=== PATIENT | female | born 1985 | race Caucasian/White ===

== ENCOUNTER 2020-04-15 01:45 | Inpatient (IN) | payer OTHER ==
[2020-04-15] MEDS ORDERED: DEXTROSE 5%-LACTATED RINGERS 1,000 ML IV SCH (02:05)
[2020-04-15 03:03] LABS: BASO % 0.4 % (0-2.0); HEMATOCRIT 37.6 % (32.4-45.2); HEMOGLOBIN 12.5 GM/dL (10.7-15.3); MCH 32.3 pg (25.7-33.7); MCHC 33.2 g/dl (32.0-36.0); MEAN CELL VOLUME 97.4 fl (80-96); MEAN PLT VOLUME 10.8 fl (7.5-11.1); MONO % 5.6 % (3.8-10.2); PLATELET COUNT 229 K/MM3 (134-434); RBC 3.86 M/mm3 (3.60-5.2); RDW 14.2 % (11.6-15.6); WHITE BLOOD COUNT 10.1 K/mm3 (4.0-10.0)
[2020-04-15 03:13] LABS: CORRECTED WBC 0.01 K/mm3; INR 0.86 (0.83-1.09); PROTHROMBIN TIME (PATIENT) 10.1 SEC (9.7-13.0)
[2020-04-15 03:15] LABS: ACTIVATED PTT 25.5 SECONDS (25.2-36.5)
[2020-04-15 03:34] VITALS: BMI 27.6
[2020-04-15 03:48] LABS: BLOOD UREA NITROGEN 15.9 mg/dL (7-18); CREATININE 0.7 mg/dL (0.55-1.3); POTASSIUM 3.5 mmol/L (3.5-5.1)
[2020-04-15] MEDS ORDERED: ELECTROLYTE-148 SOLN 1,000 ML IV SCH (13:45)
--- NOTE | 2020-04-15 13:51 | HP ---
Past Medical History - Primary Care Physician PCP:: Shane Herr - Admission Chief Complaint: 34yo p1 with at EGA 40w6d admitted with PROM since 11pm on 04/14/2020. History of Present Illness: Post term at 40w6d with PROM since 22:00 on 04/14/20 and not in labor. Previous C/S in 05/2018 for breech. Patient desires . 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: Alzheimer's, CVA, Dementia, Migraine, Multiple Sclerosis, Peripheral Neuropathy, Parkinson's, Seizure, Syncope, TIA, Vertigo, Other Cardiovascular: No: AFIB, Aneurysm, Aortic Insufficiency, Aortic Stenosis, CAD, CHF, Deep Vein Thrombosis, HTN, Hyperlipdemia, RI, Mitral Insufficiency, Mitral Stenosis, Murmur, Pulmonary Hypertension, Other Pulmonary: No: Asthma, Bronchitis, Cancer, COPD, O2 Dependent, Pneumonia, Previously Intubated, Pulmonary Embolus, Pulmonary Fibrosis, Sleep Apnea, Other Gastrointestinal: No: Ascites, Cancer, Constipation, Crohn's Disease, Diverticulitis, Diverticulosis, Esophageal Varices, Gastritis, GERD, GI Bleed, Hemorrhoids, Hiatal Hernia, Inflamatory Bowel Disease, Irritable Bowel Disease, Pancreatitis, Peptic Ulcer Disease, Ulcerative Colitis, Other Hepatobiliary: No: Cirrhosis, Cholelithiasis, Cholecystitis, Choledocholithiasis, Hepatitis A, Hepatitis B, Hepatitis C, Other Renal/: No: Renal Failure, Renal Inusuff, BPH, Cancer, Hematuria, He modialysis, Neurogenic Bladder, Renal Calculi, UTI, Other Reproductive: No: Ectopic , Endometriosis, Fibroids, PID, Polycystic Ovary Syndrome, Postmenopausal, Other ...: 2 ...Para: 1 (C/S x 1 for breech) ...Term: 1 ...: 0 ...Spon : 0 ...Induced : 0 ...Living Children: 1 ...Multiple Gestation: 0 ... Weeks Gestation by Dates: 41.1 ...EDC by Dates: 04/07/20 ...EDC by Sono: 04/09/20 Heme/Onc: No: Anemia, B12 Deficiency, Bleeding Disorder, Cancer, Current Chemotherapy, Current Radiation Therapy, Hemochromatosis, Hypercoaguable State, Myeloproliferative Synd, Sickle Cell Disease, Sickle Cell Trait, Thrombocytopenia, Other Infectious Disease: No: AIDS, C-Diff, Herpes Zoster, HIV, MRSA, STD's, Tuberculosis, VREF, Other Psych: No: Addictions, Anxiety, Bipolar, Depression, Panic, Psychosis, Schizophrenia, Other Musculoskeletal: No: Bursitis, Chronic low back pain, Hemiparesis, Hemiplegia, Osteoarthritis, Paraplegia, Other Rheumatology: No: Fibromyalgia, Gout, Lupus, Rheumatoid Arthritis, Sarcoidosis, Vasculitis, Other ENT: No: Allergic Rhinitis, Sinusitis, Other Endocrine: No: Earnest's Disease, [place]'s Disease, Diabetes Insipidus, Diabetes Mellitus, Hyperparathyroidism, Hyperthyroidism, Hypothyroidism, Osteopenia, SIADH, Other Dermatology: No: Basal Cell, Cellulitis, Eczema, Melanoma, Psoriasis, Squamous Cell, Other - Past Surgical History Past Surgical History: Yes: Hx Myomectomy: No Hx Transabdominal Cerclage: No - Smoking History Smoking history: Never smoked Have you smoked in the past 12 months: No - Alcohol/Substance Use Hx Alcohol Use: No History of Substance Use: reports: None - Social History Usual Living Arrangement: Yes: With Spouse, With Child Do you think of yourself as: Straight/Heterosexual ADL: Independent History of Recent Travel: No Home Medications - Allergies Allergies/Adverse Reactions: Allergies Allergy/AdvReac Type Severity Reaction Status Date / Time shellfish derived Allergy Unknown Verified 05/29/18 06:25 No Known Drug Allergies Allergy Verified 05/29/18 09:30 - Home Medications Home Medications: Ambulatory Orders Pnv No.95/Ferrous Fum/Folic AC [ Vitamin Tablet] 1 each PO DAILY 05/29/18 Family Medical History Family History: Unremarkable Review of Systems - Review of Systems Constitutional: reports: No Symptoms, Other (occasional mild ctx's) Eyes: reports: No Symptoms HENT: reports: No Symptoms Neck: reports: No Symptoms Cardiovascular: reports: No Symptoms Respiratory: reports: No Symptoms Gastrointestinal: reports: No Symptoms Genitourinary: reports: No Symptoms Breasts: reports: No Symptoms Reported Musculoskeletal: reports: No Symptoms Integumentary: reports: No Symptoms Neurological: reports: No Symptoms Endocrine: reports: No Symptoms Hematology/Lymphatic: reports: No Symptoms Psychiatric: reports: No Symptoms Pain Intensity: 1 Physical Exam - Maternity Vital Signs: Vital Signs Temperature 98.2 F 07/05/20 12:00 Pulse Rate 69 04/15/20 13:00 Respiratory Rate 20 04/15/20 13:00 Blood Pressure 129/78 04/15/20 13:00 O2 Sat by Pulse Oximetry (%) Constitutional: Yes: Well Nourished, No Distress, Calm Eyes: Yes: WNL, Conjunctiva Clear, EOM Intact HENT: Yes: WNL, Atraumatic, Normocephalic Neck: Yes: WNL, Supple, Trachea Midline Cardiovascular: Yes: WNL, Regular Rate and Rhythm Breast(s): Yes: WNL - Abdominal Exam/OB Fundal Height: 41 Number of Fetuses: Single Presentation: Vertex Contractions: Yes Regularity: Irritability Intensity: Mild Monitor Mode: External Heart Rate (range): 140 Heart Rate Location: Midline Category: I Accelerations: Uniform Decelerations: Variable (occasional mils and rare variable decels) - Vaginal Exam/OB Vaginal Bleeding: No Speculum Exam: Yes Amniotic Membrane Status: Leaking Nitrazine Test: Positive Amniotic Fluid: Yes: Clear Meconium: Light Presentation: Vertex/Position Station: -4 - Physical Exam Musculoskeletal: Yes: WNL, Muscle Weakness Edema: No Integumentary: Yes: WNL Deep Tendon Reflex Grade: Normal +2 ...Motor Strength: WNL Psychiatric: Yes: WNL, Alert, Oriented - Labs Lab Results: CBC, BMP 04/15/20 02:45 04/15/20 02:45 Hemorrhage Risk Assessment - Risk Factors Medium Risk Factors: Yes: Prior , uterine surgery,or multiple laparotomies High Risk Factors: Yes: None Risk Score: 1 Risk Level: Medium Risk Imaging - Results Ultrasound: Report Reviewed Assessment/Plan 34yo p1 with at EGA 40w6d admitted with PROM since 11pm on 04/14/2020. The pt desires TOLAC. 1. Admit to L&D 2. Pt is s/p primary LT C/S in the past w/o other uterine surgery or contraindications to TOLAC/ 3. Consents reviewed and signed. Reviewed risks of Trial of Labor after section, including but not limited to: - Risks of failed trial of labor resulting in a repeat delivery in a pproximately 20-40% of patients who are attempting - Risks of uterine rupture and/or uterine scar dehiscence resulting in emergency delivery (0.2 - 1.5% risk) - Risks of hemorrhage, DIC, hysterectomy, blood transfusion, injury to surrounding organs, need for additional future surgery, etc. - Potential increase in risks of complications if failed - Risks of severe neurologic compromise/injury, or - Rare risks of maternal 4. GBS Negative 5. FHT is Category I and fetus requires no intervention 6. Anesthesia and Kian notified of patients TOLAC. 7. Plan to proceed with expectant managent. I discussed the risks and benefits of repeat C/S now, possible emergency C/S, expectant management in labor, augmentation/induction of labor with pitocin, etc. The pt prefers expectant mgt of labor. She declined repeat C/S and pitocin. We discussed the risks of chorio.
--- NOTE | 2020-04-15 15:25 | PN ---
Ante-Partal Exam - Subjective Subjective: No complaints. Declined pitocin labor indx again. Vital Signs: Vital Signs Temperature 98.7 F 04/15/20 14:49 Pulse Rate 70 04/15/20 14:49 Respiratory Rate 20 04/15/20 14:49 Blood Pressure 127/74 04/15/20 14:49 O2 Sat by Pulse Oximetry (%) Bleeding: No Headache: No Visual changes: No Right upper quadrant pain: No Pain (scale 1-10): 1 - Contractions Contractions: Yes Regularity: Irregular Intensity: Mild Monitor Mode: External - Exam during Labor Heart Rate: 140 Variability: Moderate Heart Rate Location: Midline Category: I Monitor Accelerations: Present Monitor Decelerations: None Exam: Vaginal Dilatation (cm): 1 Effacement (%): 50 Amniotic Membrane Status: Leaking Amniotic Fluid: Clear Presentation: Vertex Station: -3 Remarks: Adequate Gynecoid pelvimetry - Intrapartum Hemorrhage Risk Medium Risk Factors: None High Risk Factors: None Risk Score: 0 Risk Level: Low Risk - Assessment/Plan Assessment/Plan: 34yo P1 with PROM, not in labor. Fetus with Category I tracing and does not need intervention. Pt declined pitocin again. She prefers to monitor labor and await spontaneous labor.
[2020-04-15] MEDS ORDERED: LACTATED RINGERS SOLUTION 1,000 ML/1,000 ML INFUS.BAG IV SCH (15:30)
[2020-04-15] MEDS ORDERED: AMPICILLIN - 2 GM in SODIUM CHLORIDE 100 ML IVPB ONE (16:00)
[2020-04-15] MEDS ORDERED: AMPICILLIN SODIUM 2 GM VIAL ONE (17:23)
[2020-04-15] MEDS ORDERED: AMPICILLIN - 1 GM in SODIUM CHLORIDE 100 ML IVPB SCH (20:00)
[2020-04-15] MEDS ORDERED: AMPICILLIN SODIUM 1 GM VIAL ONE ×2 (20:51→23:38)
--- NOTE | 2020-04-15 23:25 | PN ---
Ante-Partal Exam - Subjective Subjective: Pt is w/o complaints, comfortable, no regular contractions, no fever or chills. The pt and her refused labor indx w/pitocin, refused delivery by C/S. The pt wants to discharge herself from the hospital AMA and go home. Vital Signs: Vital Signs Temperature 98.6 F 04/15/20 22:00 Pulse Rate 65 04/15/20 22:00 Respiratory Rate 18 04/15/20 22:00 Blood Pressure 126/78 04/15/20 22:00 O2 Sat by Pulse Oximetry (%) Bleeding: No Headache: No Visual changes: No Right upper quadrant pain: No Pain (scale 1-10): 0 - Contractions Contractions: Yes (1 mild ctx per hour) Regularity: Irritability Monitor Mode: External - Exam during Labor Heart Rate: 140 Variability: Moderate Heart Rate Location: Midline Category: I Monitor Accelerations: Present Monitor Decelerations: None Amniotic Fluid: Clear - Intrapartum Hemorrhage Risk Medium Risk Factors: None High Risk Factors: None Risk Score: 0 Risk Level: Low Risk - Assessment/Plan Assessment/Plan: 34yo P1 with at 40w6d admitted with PROM > 24hrs ago. The pt and her refused labor indx w/pitocin, refused delivery by C/S. The pt wants to discharge herself from the hospital AMA and go home. 1. Pt is not in labor 2. Fetus with Category I tracing 3. No evidence of chorio at this time 4. The pt is stable. We had a very long and detailed discussion about the risks of going home AMA. I explained the risks of infection, bleeding, morbidity and mortality, mat ernal morbidity and mortality, uterine rupture, DIC, hysterectomy, etc. I explained the risks of late post term . The pt was advised that she is welcome to call me and/or return to the hospital at any time. I also advised to take abx to decrease the risk of infection.
[2020-04-15] MEDS ORDERED: SODIUM CHLORIDE 100 ML IVPB ONE (23:38)
[2020-04-16 00:08] VITALS: BP 112/64; PULSE 72; TEMP 98.4
[2020-04-17 08:30] LABS: POC NITRAZINE POS
== END 2020-04-16 00:30 | disposition left against medical advice (07) | DRG 833 ==
LOC: JDEL 01:45 → JLDR 02:05
PROVIDERS: ADMIT Obstetrics & Gynecology; ATTEND Obstetrics & Gynecology
DX: O42.92 Full-term premature rupture of membranes, unspecified as to length of time between rupture and onset of labor (principal); O48.0 Post-term pregnancy; Z3A.40 40 weeks gestation of pregnancy
CPT/HCPCS: 36415; 80048; 83986-QW; 85025; 85610; 85730; 86780; 86850; 86900; 86901; 87389; U0003

== ENCOUNTER 2020-04-17 00:05 | Inpatient (IN) | payer OTHER ==
[2020-04-17 04:10] VITALS: BMI 27.6
[2020-04-17] MEDS ORDERED: SODIUM CHLORIDE 100 ML IVPB ONE (05:49)
[2020-04-17] MEDS ORDERED: AMPICILLIN SODIUM 2 GM VIAL ONE (05:49)
[2020-04-17] MEDS ORDERED: AMPICILLIN - 2 GM in SODIUM CHLORIDE 100 ML IVPB ONE (06:00)
--- NOTE | 2020-04-17 06:11 | HP ---
Past Medical History - Primary Care Physician PCP:: Cecilia Gomez - Admission Chief Complaint: 34yo P1 @ 40wks with prolonged ROM, occasional contractions History of Present Illness: Post term at 40w6d with PROM since 22:00 on 04/14/20 and not in labor. Previous C/S in 05/2018 for breech. Patient desires History Source: Patient Limitations to Obtaining History: No Limitations - Past Medical History ...: 2 ...Para: 1 ...Term: 1 ...: 0 ...Spon : 0 ...Induced : 0 ...Living Children: 1 ...Multiple Gestation: 0 ...LMP: 07/02/19 ... Weeks Gestation by Dates: 41.2 ...EDC by Dates: 04/07/20 ...EDC by Sono: 04/09/20 - Past Surgical History Past Surgical History: Yes: Hx Myomectomy: No Hx Transabdominal Cerclage: No - Smoking History Smoking history: Never smoked Have you smoked in the past 12 months: No - Alcohol/Substance Use Hx Alcohol Use: No History of Substance Use: reports: None - Social History ADL: Independent History of Recent Travel: No Home Medications - Allergies Allergies/Adverse Reactions: Allergies Allergy/AdvReac Type Severity Reaction Status Date / Time shellfish derived Allergy Unknown Verified 05/29/18 06:25 No Known Drug Allergies Allergy Verified 05/29/18 09:30 - Home Medications Home Medications: Ambulatory Orders Pnv No.95/Ferrous Fum/Folic AC [ Vitamin Tablet] 1 each PO DAILY 05/29/18 Amoxicillin/Potassium Clav [Augmentin 500-125 Tablet] 1 each PO BID #20 tablet MDD 2 04/15/20 Review of Systems - Review of Systems Constitutional: reports: No Symptoms Eyes: reports: No Symptoms HENT: reports: No Symptoms Neck: reports: No Symptoms Cardiovascular: reports: No Symptoms Respiratory: reports: No Symptoms Gastrointestinal: reports: No Symptoms Genitourinary: reports: Other (Reports contructoins, continued LOF) Breasts: reports: No Symptoms Reported Musculoskeletal: reports: No Symptoms Integumentary: reports: No Symptoms Neurological: reports: No Symptoms Endocrine: reports: No Symptoms Hematology/Lymphatic: reports: No Symptoms Psychiatric: reports: No Symptoms Physical Exam - Maternity Vital Signs: Vital Signs Temperature 98.4 F 04/17/20 05:09 Pulse Rate 91 H 04/17/20 05:09 Respiratory Rate 18 04/17/20 05:09 Blood Pressure 126/75 04/17/20 05:09 O2 Sat by Pulse Oximetry (%) Constitutional: Yes: Well Nourished Eyes: Yes: WNL, Conjunctiva Clear HENT: Yes: WNL, Atraumatic, Normocephalic Neck: Yes: WNL, Supple, Trachea Midline Cardiovascular: Yes: WNL, Regular Rate and Rhythm Lungs: Clear to auscultation Breast(s): Yes: WNL - Abdominal Exam/OB Fundal Height: 38 Number of Fetuses: Single Presentation: Vertex Contractions: Yes Regularity: Irregular Intensity: Mild Monitor Mode: External Heart Rate (range): 140 Heart Rate Location: Midline Category: I Accelerations: Uniform Decelerations: None - Vaginal Exam/OB Vaginal Bleeding: No Speculum Exam: No Dilatation (cm): 2-3 Effacement (%): 80% Amniotic Membrane Status: Ruptured Nitrazine Test: Positive Amniotic Fluid: Yes: Clear Presentation: Vertex/Position Station: -3 - Physical Exam Musculoskeletal: Yes: WNL Extremities: Yes: WNL Edema: Yes Integumentary: Yes: WNL ...Motor Strength: WNL Psychiatric: Yes: WNL, Alert, Oriented Assessment/Plan 34yo P1 @ 41.1wks with prior c/section Prolonged PROM, early labor Admit to L&D IV Ampicillin Currently declines augmentation with Pitocin declines any pain medication Possibility of c/section discussed r/b/a of all delivery methods extensively discussed with patient Patient will dis cuss her options with
[2020-04-17] MEDS ORDERED: ELECTROLYTE-148 SOLN 1,000 ML IV SCH (06:15)
[2020-04-17] MEDS ORDERED: OXYTOCIN 30 UNITS in 0.9% NS 30 UNIT/500 ML INFUS.BAG IVPB SCH (08:15)
[2020-04-17] MEDS ORDERED: morphine SULFATE/PF 0.5 MG/ML (2cc Syringe - QUVA) ONE (08:44)
[2020-04-17] MEDS ORDERED: ceFAZolin SODIUM 1 GM VIAL ONE (08:44)
[2020-04-17] MEDS ORDERED: ePHEDrine SULFATE 50 MG/1 ML AMPULE ONE (08:44)
[2020-04-17] MEDS ORDERED: AMPICILLIN SODIUM 1 GM VIAL ONE (10:12)
[2020-04-17] MEDS: AMPICILLIN - 1 GM in SODIUM CHLORIDE 100 ML IVPB SCH ×2 (10:15→15:43)
[2020-04-17] MEDS ORDERED: OXYTOCIN 20 UNITS in 0.9% NS 20 UNIT/1,000 ML INFUS.BAG IV ONE ×2 (12:41→15:22)
[2020-04-17] MEDS ORDERED: ONDANSETRON 4 MG/2 ML VIAL IVPUSH PRN (12:44)
[2020-04-17] MEDS ORDERED: OXYTOCIN 10 UNITS/ML VIAL ONE (13:00)
[2020-04-17] MEDS ORDERED: SODIUM CHLORIDE 0.9% P/F 10 ML VIAL IJ ONE (13:00)
[2020-04-17] MEDS ORDERED: KETOROLAC TROMETHAMINE 30 MG/1 ML VIAL ONE (14:01)
[2020-04-17 15:04] LABS: CORD BASE EXCESS -2.6 mmol/L (0-2); CORD HCO3 24.9 mmHg (20-29); CORD PCO2 52.9 mmHg (30-78); CORD pH 7.29 (7.14-7.44)
[2020-04-17 15:06] LABS: CORD HCO3 23.7 mmHg (20-29); CORD PCO2 57.8 mmHg (30-78); CORD pH 7.231 (7.14-7.44)
[2020-04-17] MEDS ORDERED: diphenhydrAMINE HCL 25 MG CAPSULE (FP) PO PRN (16:00)
[2020-04-17] MEDS ORDERED: BENZOCAINE 20% 57 GM BOTTLE TP PRN (16:00)
[2020-04-17] MEDS ORDERED: oxyCODONE HCL 5 MG TABLET PO PRN ×2 (16:00)
[2020-04-17] MEDS ORDERED: OXYTOCIN 20 UNITS in 0.9% NS 20 UNIT/1,000 ML INFUS.BAG IV SCH (16:00)
[2020-04-17] MEDS ORDERED: BENZOCAINE 28 GM HEMORRHOIDAL OINTMENT PR PRN (16:00)
[2020-04-17] MEDS ORDERED: IBUPROFEN 800 MG/8 ML IJ IVPB PRN (16:00)
[2020-04-17] MEDS ORDERED: METHYLERGONOVINE MALEATE 0.2 MG/1 ML AMP IM PRN (16:00)
[2020-04-17] MEDS ORDERED: WITCH HAZEL 50% (TUCKS) 40 PAD/JAR PAD TP PRN (16:00)
[2020-04-17] MEDS ORDERED: IBUPROFEN 600 MG TABLET (FP) PO PRN (16:00)
--- NOTE | 2020-04-17 16:00 | OP ---
Operative Note - Note: Operative Date: 04/17/20 Pre-Operative Diagnosis: 34yo P1 @ 41.1wks with prolonged ROM, no spontaneous labor, prior c/section, Elects c/section Operation: Repeat c/section Findings: Viable female , APGARs 9/9 cloudy amniotic fluid Normal bl tubes and ovaries Post-Operative Diagnosis: Same as Pre-op Surgeon: Cecilia Gomez Body Shop Technician: Rojelio Powell Anesthesiologist/RUBBER TIRE CURER: Valeria Felix Anesthesia: Spinal Estimated Blood Loss (mls): 700 Drains, Volume Out (mls): 200 Fluid Volume Replaced (mls): 1,600 Operative Report Dictated: Yes
[2020-04-17] MEDS ORDERED: CITRIC ACID/SODIUM CITRATE 30 ML UNIT-DOSE CUP PO ONE (16:06)
[2020-04-17] MEDS: CEFAZOLIN 1 GM/D5W 1 GM/50 ML BAG IVPB SCH (17:45)
--- NOTE | 2020-04-17 19:44 | PN ---
Delivery - Delivery Section: Repeat Type of Anesthesia: Spinal Episiotomy/Laceration: None EBL (cc): 700 Delivery, Single - Stages of Labor Date of Delivery: 04/17/20 Time of Delivery: 13:59 Date Placenta Delivered: 04/17/20 Time Placenta Delivered: 14:01 Placenta: Yes: Expressed - Condition of Infant Childcare Worker/Transfer Car Operator Drier Present: Yes Name: Pily Kumar Infant Gender: Female Weight: 7 lb 1 oz Position: Left, OP Total Hours ROM (Hrs/Mins): 64h1m - 1 Minute Total Score: 9 5 Minutes Total Score: 8 - Sullivan Feeding Plan Initial Plan: Exclusive throughout hospitalization Benefits of Exclusively reinforced: Yes Remarks - Remarks Remarks: Transverse arrest
--- NOTE | 2020-04-17 20:48 | OP ---
DATE OF OPERATION: DATE OF DICTATION: 04/17/2020 After assuring informed consent and answering all patient's questions, patient was brought to the operating room where spinal anesthesia was administered. Patient was placed in supine position with left lateral tilt. Abdomen was prepped and draped in sterile fashion. Pfannenstiel skin incision was created with the scalpel, and carried down to the level of the fascia with the scalpel. Fascia was incised with the scalpel, and fascial incision was extended bilaterally with Bovie cautery and subsequently dissected off the rectus abdominis muscle with the Bovie cautery superiorly and inferiorly. The rectus muscle was split in the midline superiorly and inferiorly. Peritoneum identified, tented with Zakia clamps, and incised with Metzenbaum scissors. Peritoneal incision was extended superiorly and inferiorly with good visualization of underlying organs. No significant adhesions were encountered. The bladder was retracted with lower edge of the Nivia. The vesicouterine peritoneum was tented and incised with Metzenbaum scissors and extended bilaterally. Bladder flap was created, and bladder was retracted further with lower edge of the [place]. The lower uterine incision was created with the scalpel and extended bilaterally with bandage scissors. Infant's ear was found to be in the incision. The 's head was found to be in transverse left occiput transverse arrest, was delivered atraumatically, the head as well as both shoulders and the body suctioned upon delivery. The amniotic fluid was found to be cloudy. 's cord was clamped and cut. was handed to waiting laundry assistant. Portion of the cord was sent for blood gases. Placenta was expressed without any difficulty. Uterus was cleared of clots and debris, cultured. Uterus was repaired with 0 Biosyn in running, locking fashion, and subsequently imbricated with 2nd layer of 0 Biosyn. Excellent hemostasis was noted. Abdomen was copiously irrigated. The excellent hemostasis was noted. All laps removed from the abdomen and the peritoneum was repaired with 0 Biosyn. Muscle was reapproximated at the midline. The fascia was repaired with 0 Vicryl in 2 portions. The subcutaneous space was repaired with 2-0 chromic. The skin was closed with 4-0 Biosyn on a Fernie needle. Excellent hemostasis throughout. Instrument and sponge count was correct x2. Uterus was expressed and no active bleeding was noted. Estimated blood loss was 700 mL, urine output 200 mL. Patient received 1600 mL of IV fluid. Patient tolerated procedure well and was brought back to the recovery room in stable condition. Agnieszka [id number]
[2020-04-18] MEDS: CEFAZOLIN 1 GM/D5W 1 GM/50 ML BAG IVPB SCH (01:36)
[2020-04-18] MEDS: DEXTROSE 5%-LACTATED RINGERS 1,000 ML IV SCH ×2 (01:40→20:22)
--- NOTE | 2020-04-18 08:53 | PN ---
Post Progress Note - Subjective Subjective: Patient without acute complaints. Reports tolerating oral intake without nausea or vomiting. Ambulating without dizziness. Denies fevers or chills. Pain well controlled with oral pain medication. Pumping/breast feeding without issue. Passing flatus, no BM. Post Day: 1 Type of Delivery: Repeat C/S Vital Signs: Vital Signs Temperature 98.7 F 04/18/20 06:00 Pulse Rate 71 04/18/20 06:00 Respiratory Rate 20 04/18/20 08:00 Blood Pressure 137/85 04/18/20 06:00 O2 Sat by Pulse Oximetry (%) 100 04/17/20 15:50 Breast Exam: Yes: Soft Uterus: Yes: Fundus Firm, Fundus below umbilicus, Non-tender Incision: Yes: Dressing dry and intact Abdomen/GI: Yes: Abdomen soft, Passing flatus Lochia: Yes: Rubra Lochia, amount: Small Extremities: Yes: Calves non-tender Perineum: Yes: Intact Activity: Ambulating Assessment/Plan 34 y.o. female s/p repeat LT C/S, doing well stable, afebrile. The pt is asymptomatic for s/sxs of anemia. care instructions reviewed. Postoperative care and instructions reviewed. Continue routine postop care. Ambulation encouraged.
--- NOTE | 2020-04-18 08:57 | PN ---
Progress Note (short form) - Note Progress Note: Anesthesia post op note POD#1. S/P under spinal anesthesia with duramorph. VSS. Pain well controlled. Ambulating. No apparent post anesthesia complications.
[2020-04-18 09:34] LABS: BASO % 0.3 % (0-2.0); EOS % 0.9 % (0-4.5); HEMATOCRIT 35.4 % (32.4-45.2); HEMOGLOBIN 11.6 GM/dL (10.7-15.3); LYMPH % 9.1 % (8-40); MCH 32.1 pg (25.7-33.7); MCHC 32.7 g/dl (32.0-36.0); MEAN CELL VOLUME 98.1 fl (80-96); NEUT % 85.7 % (42.8-82.8); PLATELET COUNT 181 K/MM3 (134-434); RBC 3.61 M/mm3 (3.60-5.2); RDW 14.7 % (11.6-15.6); WHITE BLOOD COUNT 10.9 K/mm3 (4.0-10.0)
[2020-04-18 11:24] LABS: ANISOCYTOSIS 0; MACROCYTOSIS 0; PLATELET ESTIMATE NORMAL
[2020-04-18] MEDS: ACETAMINOPHEN 325 MG TABLET (FP) PO PRN (12:05)
[2020-04-18] MEDS: IBUPROFEN 600 MG TABLET (FP) PO PRN (12:05)
[2020-04-18] MEDS: SIMETHICONE 80 MG TAB.CHEW (FP) PO PRN (12:06)
[2020-04-18] MEDS ORDERED: BISACODYL 10 MG SUPP.RECT PR PRN (16:00)
[2020-04-19] MEDS: IBUPROFEN 600 MG TABLET (FP) PO PRN ×2 (03:12→13:13)
[2020-04-19] MEDS: ACETAMINOPHEN 325 MG TABLET (FP) PO PRN ×2 (03:12→13:13)
[2020-04-19] MEDS: SIMETHICONE 80 MG TAB.CHEW (FP) PO PRN (03:13)
--- NOTE | 2020-04-19 08:20 | PN ---
Post Progress Note - Subjective Subjective: Attempted to examine patient 3 times over a 30 minute period, patient was in shower Per RN, no complaints, desires DC home today Post Day: 2 Type of Delivery: Repeat C/S Vital Signs: Vital Signs Temperature 99.1 F 04/18/20 22:00 Pulse Rate 72 04/18/20 22:00 Respiratory Rate 20 04/18/20 22:00 Blood Pressure 144/74 04/18/20 22:00 O2 Sat by Pulse Oximetry (%) 100 04/17/20 15:50 - Labs Labs: CBC WBC 10.9 K/mm3 (4.0-10.0) H 04/18/20 09:20 RBC 3.61 M/mm3 (3.60-5.2) 04/18/20 09:20 Hgb 11.6 GM/dL (10.7-15.3) 04/18/20 09:20 Hct 35.4 % (32.4-45.2) 04/18/20 09:20 MCV 98.1 fl (80-96) H 04/18/20 09:20 MCH 32.1 pg (25.7-33.7) 04/18/20 09:20 MCHC 32.7 g/dl (32.0-36.0) 04/18/20 09:20 RDW 14.7 % (11.6-15.6) 04/18/20 09:20 Plt Count 181 K/MM3 (134-434) D 04/18/20 09:20 MPV 10.0 fl (7.5-11.1) 04/18/20 09:20 Absolute Neuts (auto) 9.3 K/mm3 (1.5-8.0) H 04/18/20 09:20 Neutrophils % 85.7 % (42.8-82.8) H 04/18/20 09:20 Neutrophils % (Manual) 88.0 % (42.8-82.8) H 04/18/20 09:20 Band Neutrophils % 1.0 % 04/18/20 09:20 Lymphocytes % 9.1 % (8-40) D 04/18/20 09:20 Lymphocytes % (Manual) 6.0 % (8-40) L 04/18/20 09:20 Monocytes % 4.0 % (3.8-10.2) 04/18/20 09:20 Monocytes % (Manual) 4 % (3.8-10.2) 04/18/20 09:20 Eosinophils % 0.9 % (0-4.5) 04/18/20 09:20 Eosinophils % (Manual) 1.0 % (0-4.5) 04/18/20 09:20 Basophils % 0.3 % (0-2.0) 04/18/20 09:20 Basophils % (Manual) 0.0 % (0-2.0) 04/18/20 09:20 Myelocytes % (Man) 0 % (0-2) 04/18/20 09:20 Promyelocytes % (Man) 0 % (0-2) 04/18/20 09:20 Blast Cells % (Manual) 0 % (0-0) 04/18/20 09:20 Nucleated RBC % 0 % (0-0) 04/18/20 09:20 Metamyelocytes 0 % (0-2) 04/18/20 09:20 Hypochromia 0 04/18/20 09:20 Platelet Estimate Normal 04/18/20 09:20 Polychromasia 0 04/18/20 09:20 Poikilocytosis 0 04/18/20 09:20 Anisocytosis 0 04/18/20 09:20 Microcytosis 0 04/18/20 09:20 Macrocytosis 0 04/18/20 09:20 Assessment/Plan 34 yo POD # 2 s/p primary CD, afebrile, vital signs stable, doing well 1. Patient stable for discharge home today. 2. Patient encouraged to contact MD for: - Severe pain not controlled by oral pain medication - Fevers or chills - Nausea or vomiting, intolerance of oral intake - Incision redness, tenderness or discharge 3. Patient to follow up in office in 1-2 weeks for incision check, 4-6 weeks for visit
[2020-04-19 09:31] VITALS: BP 120/79; PULSE 79; TEMP 98.3
--- NOTE | 2020-04-19 09:48 | DS ---
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 Vital Signs: Vital Signs Temperature 98.3 F 04/19/20 09:00 Pulse Rate 79 04/19/20 09:00 Respiratory Rate 18 04/19/20 09:00 Blood Pressure 120/79 04/19/20 09:00 O2 Sat by Pulse Oximetry (%) 100 04/17/20 15:50 Labs: CBC, BMP 04/18/20 09:20 Delivery - Delivery Section: Repeat Type of Anesthesia: Spinal Episiotomy/Laceration: None EBL (cc): 700 Delivery, Single - Stages of Labor Date of Delivery: 04/17/20 Time of Delivery: 13:59 Time Placenta Delivered: 14:01 Placenta: Yes: Expressed - Condition of Patient Care Technician/Meat Cutting Teacher Present: Yes Name: Pily Kumar Infant Gender: Female Weight: 7 lb 1 oz Position: Left, OP Total Hours ROM (Hrs/Mins): 64h1m - 1 Minute Total Score: 9 5 Minutes Total Score: 8 - Feeding Plan Initial Plan: Exclusive throughout hospitalization Benefits of Exclusively reinforced: Yes Discharge Summary Problems reviewed: Yes Reason For Visit: LABOR ADMIT Procedures: Principal: Delivery Hospital Course: Patient presented with PROM for approximately 55 hours, prior CD desring Upon presentation , noted to not be in labor, desired repeat delivery underwent repeat CD POD # 1 patient voiding ambulating and passing gas with adequate pain control Fulfilled all criteria for DC home POD #2 Condition: Good - Instructions Diet, Activity, Other Instructions: Follow up in 1 week for incision check Physical activity Resume your normal everyday activity as tolerated no heavy lifting or exercise until seen by your surgeon. You may walk unlimited chiquis of and climb stairs. You may resume driving the car when you feel safe and comfortable behind the wheel. No sexual activity as instructed. Wound care If you have a bandage, leave it on, and keep dry for 48-72 hours. After that time discard the outer bandage. If they are tapes on the skin under the out of bandage leave them in place. They will peel off in the next 7 to 10 days. Do Not Peel them off. You may shower the day after surgery. If there are tapes present on the skin, you may shower over them. Diet There are no dietary restrictions. Eat healthy, high-fiber foods. Drink 6 to 8 glasses of liquid each day. This will assist in keeping your bowels are regular. Pain management You may take Tylenol or acetaminophen or Ibuprofen (for example, Motrin, Advil etc.) for pain, any prescription medication is ordered should be taken as prescribed for moderate to severe pain. Call MD for any of the following: Severe pain not relieved by medication Fever of 101 or higher Excessive bleeding or drainage on dressing Inability to urinate [place] PMPReference #: [id number] Referrals: Cecilia Gomez MD [Staff Physician] - Wang Garcia MD [Staff Physician] - Disposition: HOME - Home Medications Comprehensive Discharge Medication List: Ambulatory Orders Pnv No.95/Ferrous Fum/Folic AC [ Vitamin Tablet] 1 each PO DAILY 05/29/18 Amoxicillin/Potassium Clav [Augmentin 500-125 Tablet] 1 each PO BID #20 tablet MDD 2 04/15/20 Oxycodone HCl/Acetaminophen [Percocet 5-325 mg Tablet] 1 tab PO Q6H #5 tablet MDD 4 04/19/20
[2020-04-19] MEDS ORDERED: SENNOSIDES/DOCUSATE COMBO (SENNA PLUS) TABLET (UD) PO PRN (22:00)
--- NOTE | 2020-04-23 17:14 | PATH ---
Surgical Pathology Report Patient Name: GILBERT SNOWDEN Med. Rec. 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 Specimen(s) Received PLACENTA Clinical History at 41.1 weeks, SROM on 04/14/20 Final Diagnosis PLACENTA, SECTION: 390 G THIRD TRIMESTER PLACENTA WITH TRIVASCULAR UMBILICAL CORD AND UNREMARKABLE PLACENTAL MEMBRANES. Electronically Signed Tamra Guerrero M.D. Gross Description The specimen is received fresh labeled placenta and is a 390 gram, 18.0 x 15.5 x 2.0 cm. placenta with attached membranes and umbilical cord. The attached membranes are blum, translucent with focal opacities and insert marginally. The umbilical cord measures 7 cm. in length and averages 1 cm. in diameter. The cord inserts eccentrically, 5 cm. to the nearest margin. No true knots or strictures are identified. Cut surface of the umbilical cord reveals 3 vessels. The surface is elizabeth-blue with minimal fibrin deposition and appropriate caliber vessels. The maternal surface is red-brown with focal defects. Sectioning reveals red-brown, spongy parenchyma. No lesions are identified. Senior Manufacturing Engineer sections are submitted in three cassettes as follows: 1- membrane rolls and umbilical cord; 2-3- full thickness sections of placenta. 04/20/2020 [facility]04/20/2020
== END 2020-04-19 13:20 | disposition home or self-care (01) | DRG 788 ==
LOC: JLDR 00:05 → J3N 16:39
PROVIDERS: ADMIT Obstetrics & Gynecology; ATTEND Obstetrics & Gynecology
PROC: 10D00Z1 Extraction of Products of Conception, Low, Open Approach (ICD-10-PCS; principal; 2020-04-17)
DX: O63.9 Long labor, unspecified (principal); O66.41 Failed attempted vaginal birth after previous cesarean delivery; O48.0 Post-term pregnancy; Z37.0 Single live birth; Z3A.41 41 weeks gestation of pregnancy
CPT/HCPCS: 36415; 36600; 82803; 85025; 87070; 87186; 87205; 88307-TC